=== PATIENT | male | born 1965 | race Two or more races ===

== ENCOUNTER 2016-10-02 00:04 | Emergency (ER) | payer MEDICAID ==
[2016-10-02] MEDS ORDERED: ASPIRIN CHEWTAB 81 MG TABLET ONE (00:25)
[2016-10-02 00:53] LABS: ABSOLUTE NEUTROPHIL COUNT 2.4 K/mm3 (1.8-7.7); BASO % 0.4 % (0.2-1.0); EOS # 0.3 (0.0-0.5); EOS % 4.9 % (0.9-2.9); HEMATOCRIT 39.4 % (32.0-52.0); HEMOGLOBIN 13.4 gm/l (14.0-18.0); IMM NEUT% 0.4 % (0-1); LYMPH # 2.5 (1.0-4.8); LYMPH % 44.1 % (15-45); MEAN CELL VOLUME 87.9 fl (80.0-94.0); MEAN CORPUSCULAR HEMOGLOBIN 29.9 pg (27.0-31.0); MEAN PLATELET VOLUME 9.6 fl (7.4-10.4); MONO # 0.5 (0.0-0.8); MONO % 8.8 % (4-12); NEUT % 41.4 % (43-75); PLATELET COUNT 329 K/mm3 (130-400); RED CELL DISTRIBUTION WIDTH 13.1 % (11.5-14.5)
[2016-10-02 01:07] LABS: ALB/GLOB RATIO 1.4 (>1.0); ALBUMIN 4.6 gm/dL (3.5-5.7); CALCIUM 9.4 mg/dL (8.6-10.3); MAGNESIUM 1.9 mg/dL (1.9-2.7); TROPONIN I < 0.01 ng/ml (0.0-0.06)
[2016-10-02] MEDS ORDERED: SODIUM CHLORIDE 0.9% 1,000 ML ONE (01:09)
[2016-10-02 01:11] LABS: CKMB ISOENZYME 3.3 ng/ml (0.6-6.3)
--- NOTE | 2016-10-02 08:38 | RAD ---
CHEST 2 VIEWS HISTORY: Dizziness and chest pain. Palpitations. Frontal and lateral chest radiographs dated 10/02/2016. COMPARISON: None. FINDINGS: FOCAL AIRSPACE OPACITY: No gross airspace consolidation. PLEURAL EFFUSION: None. CARDIOMEDIASTINAL SILHOUETTE: Nonenlarged. PNEUMOTHORAX: None identified. OSSEOUS STRUCTURES: No grossly destructive lesions. IMPRESSION: No acute cardiopulmonary process noted.
== END 2016-10-02 02:58 | disposition home or self-care (01) ==
LOC: ED 00:04
DX: R07.9 Chest pain, unspecified (principal); F41.9 Anxiety disorder, unspecified
CPT/HCPCS: 85025; 82550; 82553; 80053; 83735; 84484; 71020; 99284 ×2; 96360; A9270; J7030